=== PATIENT | female | born 1995 | race Caucasian/White ===

== ENCOUNTER 2016-12-12 19:12 | Emergency (ER) | payer OTHER ==
[2016-12-12 19:42] VITALS: BP 117/68
[2016-12-12] MEDS ORDERED: predniSONE TAB* 20 MG PO ONE (20:04)
[2016-12-12] MEDS ORDERED: Ipratropium 0.5MG/2.5ML NEB* 0.5 MG/2.5 ML NEB.SOLN INH ONE (20:06)
[2016-12-12] MEDS ORDERED: Albuterol 2.5 MG/3 ML NEB.SOL* (0.083%) INH ONE (20:06)
--- NOTE | 2016-12-12 20:06 | UC ---
Respiratory Complaint HPI - HPI Summary HPI Summary: worsening cough congestion and chest tightness, some nasal drainage and sore throat as well no fevers, using inhaler with some relief - History of Current Complaint Chief Complaint: UCRespiratory Stated Complaint: SINUSES Time Seen by Provider: 12/12/16 19:56 Hx Obtained From: Patient Hx Last Menstrual Period: 12/11/16 ?: No Onset/Duration: Gradual Onset, Lasting Days - 4-5, Still Present Timing: Constant Severity Initially: Mild Severity Currently: Moderate Character: Cough: Nonproductive Aggravating Factors: Allergens, Exertion Alleviating Factors: Bronchodilator Associated Signs And Symptoms: Positive: Pleuritic Chest Pain, Wheezing, URI, Nasal Congestion - Allergies/Home Medications Allergies/Adverse Reactions: Allergies Allergy/AdvReac Type Severity Reaction Status Date / Time Bee Venom Allergy Severe Anaphylatic Verified 12/12/16 19:31 Shock Peanut-containing Drug Allergy Severe Anaphylatic Verified 12/12/16 19:31 Products Shock Home Medications: Home Medications Albuterol HFA INHALER* [Ventolin HFA Inhaler*] 2 puff INH Q4H PRN 12/12/16 [ History Confirmed 12/12/16] [id number] [Night Time Multi-Symptom 15-6.25-325 mg] 1 cap PO PRN 12/12/16 [History] Dextromethorphan-Phenylephrine [Day Time Multi-Symptom Co 10-5-325 mg/15Ml] 1 liq PO PRN 12/12/16 [History] Phenylephrine-Chlorpheniramine [[place]ita-[place] Plus Cold & 5-2-10-325 mg] 1 cap PO PRN 12/12/16 [History] guaiFENesin LIQ* [Robitussin*] 10 ml PO Q4H PRN 12/12/16 [History Confirmed ] PMH/Surg Hx/FS Hx/Imm Hx Previously Healthy: No Respiratory History: Asthma - Surgical History Surgical History: None - Family History Known Family History: Positive: None - Social History Occupation: Student Lives: Dormitory/Roommates Alcohol Use: Occasionally Substance Use Type: None Smoking Status (MU): Never Smoked Tobacco - Immunization History Most Recent Influenza Vaccination: NOT IN 2017 Review of Systems Constitutional: Negative Skin: Negative Eyes: Negative ENT: Sore Throat, Nasal Discharge Respiratory: Shortness Of Breath, Cough Cardiovascular: Negative Gastrointestinal: Negative Genitourinary: Negative Motor: Negative Neurovascular: Negative Musculoskeletal: Negative Neurological: Negative Psychological: Negative Is Patient Immunocompromised?: No All Other Systems Reviewed And Are Negative: Yes Physical Exam Triage Information Reviewed: Yes Appearance: Well-Appearing, No Pain Distress, Well-Nourished Vital Signs: Initial Vital Signs Temp 97.2 F 12/12/16 19:33 Pulse 59 12/12/16 19:33 Resp 18 12/12/16 19:33 BP 117/68 12/12/16 19:33 Pulse Ox 99 12/12/16 19:33 Vital Signs Reviewed: Yes Eye Exam: Normal Eyes: Positive: Conjunctiva Clear ENT Exam: Normal ENT: Positive: Normal ENT inspection, Hearing grossly normal, Pharynx normal, Nasal congestion, TMs normal. Negative: Nasal drainage, Trismus, Muffled/ hoarse voice Dental Exam: Normal Neck exam: Normal Neck: Positive: Supple, Nontender, No Lymphadenopathy Respiratory Exam: Normal Respiratory: Positive: Chest non-tender, No respiratory distress, No accessory muscle use, Wheezing, Expiration Cardiovascular Exam: Normal Cardiovascular: Positive: RRR, No Murmur, Pulses Normal, Brisk Capillary Refill Musculoskeletal Exam: Normal Musculoskeletal: Positive: Strength Intact, ROM Intact, No Edema Neurological Exam: Normal Neurological: Positive: Alert, Muscle Tone Normal Psychological Exam: Normal Skin Exam: Normal UC Diagnostic Evaluation - Laboratory O2 Sat by Pulse Oximetry: 99 Re-Evaluation - Re-Evaluation First Eval Change: Improved - increased airmovement and relief of chest tightness after nebulizer treatment, Prednisone started Respiratory Course/Dx - Course Course Of Treatment: albuterol MDI with aerochamber, prednisone, will start antibiodics should symptoms worsen or fever develops, follow with psychiatric hospital or return as needed - Differential Dx/Diagnosis Differential Diagnosis/HQI/PQRI: Asthma, Bronchitis, Exacerbation Of COPD, Lower Resp Infection, Sinusitis Provider Diagnoses: Acute exacebation of asthma, Bronchospasm Discharge - Discharge Plan Condition: Stable Disposition: HOME Prescriptions: Albuterol HFA INHALER* [Ventolin HFA Inhaler*] 2 puff INH Q4H PRN #1 mdi PRN Reason: cough/wheeze/chest tightness Azithromycin TAB* [Zithromax TAB (Z-ERENDIRA) 250 mg #6 tabs] 2 tab PO .TODAY, THEN 1 DAILY #1 erendira predniSONE TAB* [Deltasone TAB*] 20 mg PO DAILY #10 tab Patient Education Materials: Acute Bronchitis (ED), Bronchospasm (ED), How to Use a Metered-Dose Inhaler and a Spacer (ED) Referrals: [facility] [Outside] - If Needed
== END 2016-12-12 21:09 | disposition home or self-care (01) ==
LOC: UCCORT 19:12
DX: J45.901 Unspecified asthma with (acute) exacerbation (principal)
CPT/HCPCS: 99202; G0463; J7512; J7644